=== PATIENT | female | born 1965 | race Two or more races ===

== ENCOUNTER 2024-12-15 15:29 | Emergency (ER) | payer MEDICAID, SELFPAY ==
[2024-12-15] VITALS (10 sets, daily range): BP systolic 143–160; BP diastolic 79–93; PULSE 80–98; RESP 17–22; TEMP 36.7–37.2; O2SAT 94–100; BMI 39.4
--- NOTE | 2024-12-15 16:54 | EKG_ITS ---
[facility] Test Date: 2024-12-15 Pat Name: MIKE PURI Department: Room: - Gender: Female Terminal Supervisor: : 1965 Requested By: Wally Kenney Order Number: [id number] Reading MD: Wally Kenney Measurements Intervals [place] Rate: 83 P: 42 TN: 152 QRS: 20 QRSD: 86 T: 19 QT: 391 QTc: 461 Interpretive Statements SINUS RHYTHM NONSPECIFIC T-WAVE ABNORMALITY No previous ECG available for comparison /store/S0/[id number]/ecg/[id number].pdf
--- NOTE | 2024-12-15 16:55 | XR_ITS ---
Examination: AP chest single view FINDINGS: AP portable upright chest single view Standing spine: December 07, 2024 1711 hours INDICATIONS: Sudden shortness of breath today. FINDINGS: Normal heart size Mild vascular congestion. Right paratracheal region is prominent No pneumonia or pulmonary edema. Moderate osteopenia IMPRESSION: Mild vascular congestion Mildly prominent right paratracheal region, recommend PA and lateral chest follow-up
--- NOTE | 2024-12-15 16:55 | PD.EDSOB ---
ED SOB =RME/HPI General Chief Complaint: Shortness of Breath/Dyspnea Stated Complaint: SOB Time Seen by Provider: 12/15/24 16:29 Arrival date/time: 12/15/24 15:29 RME / HPI RME / HPI Narrative: 59-year-old female patient was brought in by EMS for evaluation regarding shortness of breath and wheezing. Patient has been having shortness of breath and wheezing for the last 4 days, initially mild getting worse, severity moderate. Patient also complained of cough for the last 4 days. No fever noted. Denies any chest pain. Denies any leg swelling. Patient was given breathing treatment on the way to the emergency room. Patient was noted to be satting 96% on room air Related Data Home Medications ?Medication ?Instructions ?Recorded ?Confirmed aspirin 81 mg tablet 81 mg PO QDAY 05/13/23 05/13/23 diclofenac sodium 50 mg 50 mg PO DAILY 05/13/23 05/13/23 tablet,delayed release hydrochlorothiazide 12.5 mg capsule 12.5 mg PO QDAY 05/13/23 05/13/23 omega 3-ueh-wfi-fish oil 1,200 mg 1 cap PO DAILY 05/13/23 05/13/23 (144 mg-216 mg) capsule (Fish Oil) omeprazole 20 mg capsule,delayed 20 mg PO DAILY 05/13/23 05/13/23 release Previous Rx's ?Medication ?Instructions ?Recorded albuterol sulfate 2.5 mg/3 mL 2.5 mg (3 mL) inhalation QID PRN 12/15/24 (0.083 %) solution for nebulization shortness of breath or wheezing #90 mL albuterol sulfate 90 mcg/actuation 2 inh inhalation Q6H PRN shortness 12/15/24 aerosol inhaler of breath or wheezing #8.5 grams prednisone 50 mg tablet 50 mg PO QDAY #7 tabs 12/15/24 Allergies Allergy/AdvReac Type Severity Reaction Status Date / Time No Known Allergies Allergy Unverified 05/13/23 07:29 Review of Systems Review of Systems Narrative Review of Systems: Review of system reviewed and within normal limits except mentioned in HPI ED Exam Narrative Physical exam: VITAL SIGNS: Reviewed. GENERAL APPEARANCE: Alert and interactive, follows commands, no acute distress, HEAD AND FACE: Non-traumatic. ENT: PERRL, pink conjunctivitis, eyelid no trauma, Mucous membrane moist. NECK: Supple, nontender, no nuchal rigidity. CHEST: No tenderness, no crepitus, no paradoxical movement, no retractions. LUNGS:Symmetric, no rales, + wheezing, no ronchi, no stridor, decreased breath sounds bilaterally. HEART: Regular rate, regular rhythm, no murmur, no gallops. ABDOMEN: Soft, positive bowel sounds, nondistended, no guarding, nontender, no rebound, no masses, RECTAL: Deferred. GENITAL: Deferred. NEUROLOGICAL: Gross motor function intact sensory function intact, Appropriate for age. MUSCULOSKELETAL: low back nontender, full range of motion. EXTREMITIES: Nontender, full range of motion. SKIN: Color pink, dry, no rash, no lacerations, no abrasions, no contusions. LYMPHATICS: Deferred. Course Quality Measures none Orders Category Date Time Status Bedside COVID-19 Antigen Test NOW Care 12/15/24 16:54 Active Bedside Influenza A&B Antigen Test NOW Care 12/15/24 16:55 Completed EKG (ED ONLY) *Do not use* NOW Care 12/15/24 16:54 Completed EKG (ED ONLY) *Do not use* NOW Care 12/15/24 16:55 Completed EKG (ED Only) Stat Exams 12/15/24 16:54 Draft EKG (ED Only) Stat Exams 12/15/24 16:55 Ordered XR chest 1V Stat Exams 12/15/24 16:55 Completed B-Type Natriuretic Peptide Stat Lab 12/15/24 17:20 Completed Blood Culture (Lab) Stat Lab 12/15/24 17:22 Ordered CBC Stat Lab 12/15/24 17:20 Completed Comprehensive Metabolic Panel Stat Lab 12/15/24 17:20 Completed Lactate (Lactic Acid) Stat Lab 12/15/24 17:20 Completed Partial Thromboplastin Time Stat Lab 12/15/24 17:20 Completed Procalcitonin Stat Lab 12/15/24 17:20 Completed Troponin I Stat Lab 12/15/24 17:20 Completed ALBUTEROL RT 0.5ml [Proventil Rt 0.5ml] Med 12/15/24 16:53 Discontinued 5 mg INH X1 ONE Albuterol/Ipratr Rt Linda [Duoneb Rt Linda] Med 12/15/24 16:53 Discontinued 3 ml INH X1 ONE Dexamethasone Inj [Decadron Inj] Med 12/15/24 16:53 Discontinued 10 mg IV X1 ONE Levalbuterol Rt [Xopenex Rt Linda] Med 12/15/24 21:39 Discontinued 1.25 mg INH X1 ONE Sodium Chloride Rt Linda 0.9% [NS Rt Linda 0.9%] Med 12/15/24 16:53 Discontinued 3 ml INH PRN PRN Sodium Chloride Rt Linda 0.9% [NS Rt Linda 0.9%] Med 12/15/24 21:39 Active 3 ml INH PRN PRN predniSONE Med 12/15/24 21:39 Discontinued 60 mg PO X1 ONE Vital Signs Vital signs: Vital Signs Temperature 98.0 F 12/15/24 15:41 Pulse Rate 87 12/15/24 15:41 Respiratory Rate 20 12/15/24 15:41 Blood Pressure 143/87 H 12/15/24 15:41 Pulse Oximetry (%) 100 12/15/24 15:41 Oxygen Delivery Method Aerosol Mask 12/15/24 15:41 Oxygen Flow Rate 6 12/15/24 15:41 Shortness of Breath / Dyspnea MDM Narrative MDM Narrative:: 59-year-old female patient was brought in by EMS for evaluation regarding shortness of breath and wheezing. Patient has been having shortness of breath and wheezing for the last 4 days, initially mild getting worse, severity moderate. Patient also complained of cough for the last 4 days. No fever noted. Denies any chest pain. Denies any leg swelling. Patient was given breathing treatment on the way to the emergency room. Patient was noted to be satting 96% on room air Patient's CBC came back unremarkable no leukocytosis noted, CMP also came back normal except for a potassium of 3.3. Troponin is normal EKG showed normal sinus rhythm, ventricular 83 bpm, no ST segment elevation depression noted. Chest x-ray showed Mild vascular congestion Mildly prominent right paratracheal region, recommend PA and lateral chest follow-up Patient initially was given Decadron IV, DuoNeb breathing treatment and albuterol treatment breathing treatment, on reevaluation patient was noted to still having wheezing. I added Xopenex, and prednisone, I did a road test, patient was able to ambulate with oxygen saturation maintaining at 95% on room air. Patient's wheezing is completely gone prior to discharge. Plan of care discussed with the patient and her niece. Patient appears nontoxic and hemodynamically stable. Patient discharged home and instructed to follow-up with primary care provider in 24 to 48 hours. Instructed to return to the emergency department immediately if worsening of symptoms Patient data External records reviewed:: None Clinical information provided by:: patient Social determinants that could affect healthcare access:: none Patient has the following chronic illnesses:: History of present obstructive sleep apnea, asthma How is presenting disease/condition affected by chronic disease/condition?: exacerbated by Evaluation data The following diagnostics were reviewed and interpreted by me:: lab results, radiology exam(s) and EKG tracing(s) Lab and/or radiology exams considered but not ordered:: None Interpretation Summary: See results in MDM Medications / Prescriptions Medications or Prescriptions considered but not ordered:: None Medication administrations:: Medication Administration History Sodium Chloride (Sodium Chloride Rt Linda 0.9% 3 Ml Nebu) 3 ml INH PRN PRN PRN Reason: SOLN Stop: 01/14/25 21:38 Last Admin: 12/15/24 21:55 Dose: 3 ml Documented By: AYSHA Discontinued Medications Albuterol (Albuterol Rt 2.5 Mg/0.5 Ml Nebu) 5 mg INH X1 ONE Stop: 12/15/24 16:54 Last Admin: 12/15/24 18:34 Dose: 5 mg Documented By: AYSHA Albuterol/Ipratropium (Albuterol/Ipratropium (Duoneb) Rt Linda 3 Ml Nebu) 3 ml INH X1 ONE Stop: 12/15/24 16:54 Last Admin: 12/15/24 18:35 Dose: 3 ml Documented By: AYSHA Dexamethasone Sodium Phosphate (Dexamethasone Sod Phos Inj 10 Mg/Ml Vial) 10 mg IV X1 ONE Stop: 12/15/24 16:54 Last Admin: 12/15/24 18:34 Dose: 10 mg Documented By: FLETCHER Levalbuterol HCl (Levalbuterol Rt 1.25 Mg/0.5 Ml Nebu) 1.25 mg INH X1 ONE Stop: 12/15/24 21:40 Last Admin: 12/15/24 21:55 Dose: 1.25 mg Documented By: AYSHA Prednisone (Prednisone 20 Mg Tablet) 60 mg PO X1 ONE Stop: 12/15/24 21:40 Last Admin: 12/15/24 21:55 Dose: 60 mg Documented By: LB Sodium Chloride (Sodium Chloride Rt Linda 0.9% 3 Ml Nebu) 3 ml INH PRN PRN PRN Reason: SOLN Stop: 01/14/25 16:52 Last Admin: 12/15/24 18:34 Dose: 3 ml Documented By: AYSHA Albuterol, DuoNeb, dexamethasone IV, Xopenex prednisone Consultations Consultation(s) initiated? (list below): No Diagnosis Shortness of Breath Differential Diagnosis: acute exacerbation of chronic obstructive airways disease, community acquired pneumonia and asthma with exacerbation Most likely diagnosis given after review of the tests above:: Asthma Attack Admission Indicated Admission indicated?: not indicated Admission Request Was there a request for admission?: No Disposition Plan Disposition Plan: Discharge Discharge Attestation Discharge Attestation: The patient and all family members were given an opportunity to ask questions and understood the discharge instructions. Discharge instructions specifically effects, indications for sooner follow up or return to the emergency department, and the expected course of current diagnosis. Patient condition: Stable Discharge Plan Plan Patient Disposition: HOME (Self Care) Disposition Comment: stable Prescriptions/Referrals Prescriptions/Med Rec: New prednisone 50 mg tablet 50 mg PO QDAY Qty: 7 0RF albuterol sulfate 90 mcg/actuation HFA aerosol inhaler 2 inh inhalation Q6H PRN (Reason: shortness of breath or wheezing) Qty: 8.5 0RF albuterol sulfate 2.5 mg /3 mL (0.083 %) solution for nebulization 2.5 mg inhalation QID PRN (Reason: shortness of breath or wheezing) Qty: 90 0RF No Action hydrochlorothiazide 12.5 mg Capsule 12.5 mg PO QDAY omeprazole 20 mg Capsule,Delayed Release(Dr/Ec) 20 mg PO DAILY aspirin 81 mg Tablet 81 mg PO QDAY diclofenac sodium 50 mg Tablet,Delayed Release (Dr/Ec) 50 mg PO DAILY omega 3-mow-cmi-fish oil [Fish Oil] 1,200 (144-216) mg Capsule 1 cap PO DAILY Referrals: Taco Hernandez PA-C [Primary Care Provider] - In 1 week Problem List Clinical Impression: Asthma with exacerbation Patient/Caregiver Discharge Instructions Discharge Activity: activity as tolerated Education Materials: Asthma Additional Instructions: Thank you for the opportunity for serving you today. You are stable for discharged . You are advised to: Follow-up with your PCP in 1 to 2 days Return to ED for worsening of symptoms Increase oral fluids Take medication as prescribed Please buy [id number]-[id number] nebulizer as instructed Print Language: Arabic Stand Alone Forms: Briseyda Award Info., Work/School Release, Patient Portal Info Letter AMARJIT/JESUSITA Supervising Physician AMARJIT/JESUSITA Supervising Physician: MD Rahat
[2024-12-15 17:27] LABS: Lactate (Lactic Acid) 1.6 mMol/L (0.4-2.0)
[2024-12-15 17:29] LABS: Basophils % (Auto) 1 % (0-2.5); Eosinophils # (Auto) 0.2 Thou/mm3 (0.0-0.5); Eosinophils % (Auto) 5 % (0-10); Hematocrit 37.2 % (36.0-46.0); Hemoglobin 12.2 g/dL (12.0-16.0); Immature Granulocytes % (Auto) 0 % (0-0); Immature Granulocytes Auto 0.02 Thou/mm3 (0.00-0.00); Lymphocytes # (Auto) 1.7 Thou/mm3 (1.0-4.8); Lymphocytes % (Auto) 34 % (10-50); Mean Corpuscular HGB Conc 32.8 g/dl (31.0-37.0); Mean Corpuscular Hemoglobin 29.7 pg (25.0-35.0); Mean Corpuscular Volume 91 fL (80-100); Monocytes # (Auto) 0.7 Thou/mm3 (0.0-0.8); Monocytes % (Auto) 13 % (0-12); Neutrophils # (Auto) 2.3 Thou/mm3 (1.8-7.7); Neutrophils % (Auto) 47 % (37-80); Nucleated Red Blood Cell % 0 /100 WBC (0); Platelet Count 172 Thou/mm3 (140-440); RDW Standard Deviation 41.2 fL (36.4-46.3); Red Blood Count 4.11 Miln/mm3 (4.00-5.20); White Blood Count 4.8 Thou/mm3 (3.6-11.0)
[2024-12-15 17:47] LABS: B-Type Natriuretic Peptide < 20 pg/mL (0-100)
[2024-12-15 17:54] LABS: Alanine Aminotransferase 39 U/L (10-49); Albumin, Serum 4.4 gm/dL (3.4-4.8); Albumin/Globulin Ratio 1.6 (1.2-2.2); Alkaline Phosphatase 99 U/L (46-116); Anion Gap 9 (7-16); Aspartate Amino Transferase 38 U/L (0-34); BUN/Creatinine Ratio 11 Ratio (12-20); Bilirubin,Total 0.5 mg/dL (0.3-1.2); Blood Urea Nitrogen 9 mg/dL (9-23); Calcium 9.3 mg/dL (8.3-10.6); Calcium (Corrected) 9.3 mg/dL (8.5-10.1); Carbon Dioxide 27.6 mMol/L (20.0-31.0); Chloride 105 mMol/L (98-107); Creatinine (Component) 0.8 mg/dL (0.6-1.3); Estimated Creatinine Clearance 83.8 mL/min (>60); Globulin 2.8 gm/dL (2.3-3.5); Glucose 109 mg/dL (74-106); Osmolality,Calculated 282 (275-295); Potassium 3.3 mMol/L (3.4-5.1); Procalcitonin 0.07 ng/ml (0.0-0.49); Sodium 142 mMol/L (136-145); Total Protein 7.2 gm/dL (5.7-8.2); Troponin I < 0.002 ng/mL (0.0-0.045); eGFR > 60 See Note
[2024-12-15] MEDS: SODIUM CHLORIDE RT SOL 0.9% 3 ML NEBU INH ×2 (18:34→21:55)
[2024-12-15] MEDS: DEXAMETHASONE SOD PHOS INJ 10 MG/ML VIAL IV (18:34)
[2024-12-15] MEDS: ALBUTEROL RT 2.5 MG/0.5 ML NEBU 5 MG INH (18:34)
[2024-12-15] MEDS: ALBUTEROL/IPRATROPIUM (Duoneb) RT SOL 3 ML NEBU INH (18:35)
--- NOTE | 2024-12-15 21:30 | PC.NURSE ---
Anne Marie ASSOCIATE PROPERTY MANAGER in to re-eval -pt.
[2024-12-15] MEDS: LEVALBUTEROL RT 1.25 MG/0.5 ML NEBU INH (21:55)
[2024-12-15] MEDS: predniSONE 20 MG TABLET 60 MG PO (21:55)
[2024-12-15] MEDS: POTASSIUM CHLORIDE 20 mEq TABCR 40 MEQ PO (23:33)
== END 2024-12-15 23:42 | disposition home or self-care (01) ==
PROVIDERS: Nurse Practitioner Family; Emergency Provider Emergency Medicine; PCP Physician Assistant
DX: J45.901 Unspecified asthma with (acute) exacerbation (principal); R94.31 Abnormal electrocardiogram [ECG] [EKG]
CPT/HCPCS: 36415; 71045; 80053; 83605; 83880; 84145; 84484; 85025; 85730; 87040; 87400; 87811; 93005; 94640; 96374; 99284; A9270; J1100; J7512